=== PATIENT | female | born 1955 ===

== ENCOUNTER 2018-05-11 04:12 | Outpatient (CLI) | payer SELFPAY ==
[2018-05-11 09:49] LABS: CHOL/HDL RATIO 3.4 (0.00-4.99)
[2018-05-11 09:53] LABS: HEMOGLOBIN A1C 5.7 % (4.5-6.2)
== END 2018-05-11 23:59 | disposition home or self-care (01) ==
LOC: HW HEART 04:12
DX: Z13.6 Encounter for screening for cardiovascular disorders (principal)
CPT/HCPCS: 36415; G0438